=== PATIENT | female | born 1950 | race Hispanic/Latino ===

== ENCOUNTER 2019-05-27 11:30 | Inpatient (IN) | payer MEDICARE, MEDICAID ==
[~2019-05-27] VITALS: Ht 165.1 cm; Wt 84.8 kg
[~2019-05-27 11:30] MED LIST: ACTOS45 MG OR; ADVAIR DISK1 INH; ALBUTEROL S2.5 MG/.5 IN; ALBUTEROL2.5 MG/3 M IN; AVELOX400 MG OR; CELEBREX200 MG OR; CRESTOR5 MG OR; DETROL LA4 MG PO; DIABETA5 MG OR; DOXYCYCL HYC100 MG PO; GABAPENTIN300 MG PO; GLUCOPHAGE500 MG PO; GLYB/METFO5 MG/500 M OR; HYDROCHLORO25 MG/TAB PO; HYDROCHLOROT12.5 MG OR; LANTUS100 MG/ML SC; LANTUS100 UNIT/M SC; LISINOPRIL2.5 MG PO; LORTAB 5/3255 MG PO; LORTAB5 PO; MECLIZINE HCL25 MG PO; MECLIZINE25 MG PO; NASONEX50 MCG/AC NAB; NASONEX50 MCG/ACT; NEXIUM20 M1 OR; NEXIUM40 M1 PO; PERCOCET 5/325M1 TAB OR; PREDNISONE10 MG PO; PROVENTIL0.083 % IN; ROBITUSSIN AC10 ML PO; SYMBICORT1 AE1 IN; TRAMADOL HCL50 MG PO; TUSSIONEX1 ML OR; VITAMIN B-12250 MCG OR; ZOCOR10 MG PO; ZPAK PO; ZYRTEC10 M5 PO; [UNRECOGNIZED DRUG - OTHER] OR
[2019-07-03] MEDS ORDERED: VITAMIN D32000 UNIT PO (14:26)
[2019-07-03] MEDS ORDERED: DITROPAN5 MG/TA1 PO (14:26)
[2019-07-03] MEDS ORDERED: FLONASE AL50 MCG/ACT (14:27)
[2019-07-03] MEDS ORDERED: NITROSTAT0.4 MG SL (14:28)
[2019-07-03] MEDS ORDERED: TYLENOL500 MG PO (14:30)
[2019-07-03] MEDS ORDERED: VICTOZA18 MG/3 ML SC (14:38)
[2019-07-08] VITALS (8 sets, daily range): BP systolic 121–140; BP diastolic 53–72
[2019-07-08] MEDS ORDERED: CIPROFLOXACN500 MG PO (12:49)
[2019-07-08] MEDS ORDERED: CORTISPORIN OTI10 ML AS (12:55)
--- NOTE | 2019-07-08 16:00 | NUR ---
PT TO [facility] 268 FROM OR. PT VERY DROWSY, SNORING, GRIMACING WITH MOVEMENT. ON 2L NC. RIGHT KNEE ELEVATED ON PILLOW, ICE ON KNEE. LARGE FAMILY ASKED TO GO TO WAITING ROOM, LEAVING @BEDSIDE. FEMALE VISITOR STATES "LET ME LEAVE OUT OF HERE BEFORE I CUSS THIS LADY OUT". FAMILY WAS NOTIFIED PRIOR TO PT COMING TO [facility] THAT THEY WOULD HAVE TO STEP OUT FOR ASSESSMENT, ASKED TO SEE PT 1ST. VISITORS VERY LOUD, DOOR HAD TO BE SHUT.
--- NOTE | 2019-07-08 16:30 | NUR ---
PT PRESENTS TO [facility] TODAY FOR RIGHT KNEE SURGERY BY DR GALLAGHER. PER REGULATOR MECHANIC, ARRIVED WITH COTTON IN LEFT EAR (EAR INFECTION) & UTI; NOT TAKING ABX CORRECTLY AT HOME. PER OR STAFF, THEY CONFIRMED ALLERGIES AND REMOVED TYLENOL FROM LIST. PT WAS GIVEN 400MG CIPRO AT 1310, TYLENOL 1000MG AT 1458, DILAUDID 2MG GIVEN AT 1505. PT REMAINED IN PACU TO RECOVER FROM HYPOXIA D/T MEDICATIONS. RIGHT KNEE BANDAGED WITH DERMABOND, 4x4, ADELINA WRAP. ICE ON KNEE. PILLOW UNDER KNEE. #20 LAC POSITIONAL WITH NS @999ML/HR. #20 LFA SL. PT WAS GIVEN FEMORAL BLOCK PRIOR TO SURGERY. PT LIVES WITH AT HOME. NO HEARING AIDS. HAS DENTURES. DENIES SMOKING, REC DRUGS, & ALCOHOL. WEARS GLASSES. IS INSULIN DEPENDANT- DAUGHTER STATES HER BGL DROPS AT NIGHT. HAS ALREADY HAD FLU & PNA VACCINES. DENIES FALLS. USES A CANE TO WALK SOMETIMES. NO RESTORATION. MONTSERRATIAN IS PRIMARY LANGUAGE PER , ALSO SPEAKS BAHAMIAN. PT DRIVES SELF. PT DROWSY BUT AWAKENS TO SPEECH. WINCES WITH MOVEMENT. STRONG PULSES x4. NO EDEMA. ABD SOFT/NONTENDER, HYPOACTIVE BS. BREATHING EVEN/REGULAR/SHALLOW. LUNGS CTA. RAINEY. EYES SLUGGISH @2. SKIN COOL/DRY/NORMAL.
--- NOTE | 2019-07-08 16:34 | NUR ---
FAMILY NOT IN WAITING ROOM.
--- NOTE | 2019-07-08 17:24 | NUR ---
PT PLACED ON BAIRHUGGER D/T HYPOTHERMIA. PT/FAMILY EDUCATED ON INDICATION.
--- NOTE | 2019-07-08 17:27 | NUR ---
GAVE REPORT TO ALEXYS VASQUEZ FOR CONTINUED CARE.
--- NOTE | 2019-07-08 17:35 | NUR ---
PT MEDICATED FOR C/O NAUSEA; FAMILY IN ROOM; IVF INFUSING WITHOUT DIFFICULTY; CALL TELLEZ WITHIN REACH; WILL CONTINUE TO MONITOR.
--- NOTE | 2019-07-08 18:17 | NUR ---
PT STATES SHE HAS TO GO TO THE BATHROOM BUT DOESNT THINK SHE IS READY TO STAND UP. PT OFFERED BEDPAN OR PUREWICK. BAIRHUGGER LOWERED TO MEDIUM BC PT IS COMPLIANING ABOUT BEING TO HOT. PUREWICK PLACED TO SUCTION.
--- NOTE | 2019-07-08 19:45 | NUR ---
PATIENT RESTING IN BED AT THIS TIME WITH O2 VIA NASAL CANNULA IN PLACE AT 2LPM. PATIENT IS DROEWSY BUT AROUSABLE-C/O POST-OP PAIN TO RIGHT KNEE 10/10 ON PAIN SCALE. PATIENT IS TAKING ONLY SIPS OF H20 AT THIS TIME. PATIENT MEDICATED WITH DILAUDID 1MG IVP FOR PAIN. IV SITE TO LEFT AC INTACT WITH IVF NS PATENT AND INFUSING AT 100CC/HR. SITE IS HEALTHY AT THIS TIME.. SALINE LOCK TO LEFT WRIST INTACT AND APPEARS HEALTHY AT THIS ITME. BEAR HUGGER REMOVED-TEMP 97.0 AT THIS TIME. SCD TO LEFT LEG INTACT. ICE PACK TO RIGHT KNEE ON AND OFF ORDERED. DRESSING TO RIGHT INTACT AND SECURED WITH ADELINA WRAP. PUREWICK IN PLACE AND DRAINING YELLOW URINE. SAFETY PRECAUTIONS REVIEWED WITH PATIENT AND S/O. CALL LIGHT IN REACH. WILL CONT TO MONITOR.
--- NOTE | 2019-07-08 22:50 | NUR ---
PATIENT RESTING IN BED AT THIS TIME-MORE ALERT AND ORIENTED THAN EARLIER. PATIENT WITH 10/10 RIGHT KNEE PAIN. TOO EARLY FOR DILAUDID AND MEDICATED WITH PERCOCET ORDERED. REMAINS AT BEDSIDE AND WILL BE STAYING THE NIGHT WITH PATIENT. COT PROVIDED FOR . IV SITE TO LEFT AC INTACT WITH IVF NS PATENT AND INFUSING AT 100CC/HR. PATIENT IS STARTING TO TAKING MORE PO FLUIDS AND CRACKERS. O2 VIA NASAL CANNULA IN PLACE AT 2LPM. ICE PACK PROVIDED TO RIGHT KNEE ORDERED. ON AND OFF. DRESSING TO RIGHT KNEE INTACT AND SECURED WITH ADELINA WRAP. PATIENT INSTRUCTED ON USE OF IS Q1H W/A. PATIENTIS ABLE TO DEMONSTRATE PROPER USE OF THE DEVICE. SALINE LOCK TO LEFT WRIST INTACT-APPEARS HEALTHY AT THI SITME, PUREWICK IS DRAINING CLEAR YELLOW URINE. SAFETY PRECAUTIONS REINFORCED. CALL LIGHT IN REACH. WILL CONT TO MONITOR.
--- NOTE | 2019-07-08 23:54 | NUR ---
PATIENT RESTING IN BED-BS-153 AT THIS TIME BUT PATIENT IS STILL NOT EATING OR DRINKING MUCH. ONLY SIPS OF H20. SPOKE WITH DR. CERVANTES AND WILL HOLD KIERSTEN WILLIS. WILL CONT TO MONITOR.
--- NOTE | 2019-07-09 01:00 | NUR ---
PATIENT RESTING IN BED-C/O SEVERE POST-OP AND RIGHT FOOT PAIN. MEDICATED WITH DILAUDID 1MGIVP FOR PAIN. IVF PATENT AND INFUSING AT 100CC/HR VIALEFT AC SITE. PUREWICK DRAINING CLEAR YELLOW URINE. DRESSING TO RIGHTKNEE INTACT-SECURED WITH ADELINA WRAP. USING ICE PACKS ON ANDOFF ORDERED. ENCOURAGED USE OF IS Q1H W/A.SCD'S IN PLACE. CALL LIGHT IN REACH. WILL CONT TO MONITOR.
--- NOTE | 2019-07-09 03:39 | NUR ---
PATIENT RESTING IN BED-C/O RIGHT KNEE PAIN-10/10 ON PAIN SCALE. MEDICATED WITH PERCOCET TABS 2 FOR PPOST-OP PAIN. PURE WICK CONT TO DRAINING CLEAR YELLOW URINE. REMAINS AT BEDSIDE. SAFETY PRECAUTIONS REINFORCED. CALL LIGHT IN REACH. WILL CONT TO MONITOR.
[2019-07-09 04:40] VITALS: BP 121/70
[2019-07-09 05:04] LABS: HEMATOCRIT 32.6 % (37.0-47.0); HEMOGLOBIN 10.7 g/dl (12.0-16.0)
--- NOTE | 2019-07-09 07:45 | NUR ---
REPORT FROM STEFANIE REARDON. PT RESTING IN BED. PT C/O RIGHT KNEE PAIN 05/09. ICE PACKS PROVIDED AND REPOSITIONED ON PILLOWS WILL MEDICATED ONCE MAR REVIEWED. PT DENIES ANY OTHER CURRENT WANTS OR NEEDS. NO APPARENT DISTRESS NOTED. DISCUSSED POC. PT VERBALIZED UNDERSTANDING. CALL LIGHT WITHIN REACH. WILL CONTINUE TO MONITOR.
[2019-07-09 07:56] VITALS: BP 111/67
--- NOTE | 2019-07-09 10:24 | NUR ---
PT PLACED ON BED GAMBLE AT THIS TIME. PT STATES SHE WILL NEED A COUPLE OF MINUTES. CALL LIGHT WITHIN REACH. WILL CONTINUE TO MONITOR.
--- NOTE | 2019-07-09 10:33 | NUR ---
PT ASSISTED OF BEDPAN. PERICARE PROVIDED AND PT REPOSITIONED IN BED. CALL LIGHT WITHIN REACH. WILL CONTINUE TO MONITOR.
[2019-07-09 11:06] VITALS: BP 111/68
--- NOTE | 2019-07-09 13:10 | NUR ---
PT PLACED ON BEDPAN UPON REQUEST. CALL LIGHT WITHIN REACH. WILL CONTINUE TO MONITOR.
--- NOTE | 2019-07-09 15:07 | NUR ---
Pt. found resting in bed this PM, explained treatment plan of which pt. responded she would participate in exercises while in bed. Pt. educated on and performed active RLE ankle pumps, assisted R knee extensions, gluteal and quad sets and AAROM R knee flexion with gait belt x 5-8 repetitions each. Pt. also instructed on proper positioning with pillows for passive knee extension. Post treatment pt. left resting comfortably in bed without questions/concerns and relative in room visiting. AMPAC score unchanged.
[2019-07-09 16:04] VITALS: BP 105/67
--- NOTE | 2019-07-09 16:36 | NUR ---
PT VOMITED SMALL AMOUNT. PT INCONTINENT OF URINE AT THIS TIME. PERICARE PROVIDED AND PAD CHANGED. MEDICATED FOR NAUSEA. RIGHT LEG REPOSITIONED ON PILLOWS. CALL LIGHT WITHIN REACH. WILL CONTINUE TO MONITOR.
[2019-07-09 18:49] VITALS: BP 102/55
--- NOTE | 2019-07-09 19:41 | NUR ---
PATIENT RESTING IN BED ON FIRST ROUNDS WITH AT BEDSIDE. PATIENT IS AWAKE ALERT AND ORIENTEDX3. AT BEDSIDE. PATIENT STATES THAT SHE H AD LITTLE OR NO RELIEF FROM PERCOCET RECIEVED ON DAYSHIFT. O2 VIA NASAL CANNULA APPLIED O2 SAT WAS IN LOW 90'S ON ROOM AIR. PATIENT WITH IV SITES TO LEFT AC AND LEFT WRIST-SITE APPEAR HEALTHY AT THIS TIME. DRESSING TO RIGHT KNEE INTACT AND SECURED WITH ADELINA WRAP. REFUSING ICE PACKS AT THIS TIME. ENCOURAGED USE OF IS Q1H W/A-NEEDS REINFORCEMENTS. SCD TO LLE IN PLACE. ENCOURAGED TO TO GET OOB TO BSC TO VOID-VOIDING YELLOW URINE IN BSC. SAFETY PRECAUTIONS REINFORCED. CALL LIGHT IN REACH. WILL CONT TO MONITOR.
--- NOTE | 2019-07-09 20:54 | NUR ---
PATIENT RESTING IN BED-HS MEDS GIVEN ORDERED EXCEPT FOR NOVALOG AND LEVEMIR-PATIENT REFUSED AND IS NOT EATING AT THIS TIME. PATIEMT CONT TO COMPLAIN OF CONSTANT RIGHT KNEE AND BACK PAIN. TOO EARLY FOR PAIN MEDS AT THIS ITME. SAFETY PRECAUTIONS REINFORCED. CALL LIGHT IN REACH. WILL CONT TO MONITOR.
--- NOTE | 2019-07-09 22:00 | NUR ---
PATIENT RESTING IN BED WITH AT BEDSIDE. PATIENT C/O RIGHT KNEE POST-OP PAIN-9/10 ON PAIN SCALE. MEDICATED WITH PERCOCET TABS 2 FOR PAIN. CALL LIGHT IN REACH. WILL CONT TO MONITOR.
[2019-07-10] VITALS (7 sets, daily range): BP systolic 92–123; BP diastolic 48–66
--- NOTE | 2019-07-10 02:00 | NUR ---
PATIENT RESTING IN BED-MEDICATED FOR PAIN WITH PERCOCET ORDERED. AT BEDSIDE AND APPEARS SLEEPING. CALL LIGHT IN REACH. WILL CONT TO MONITOR
[2019-07-10 05:10] LABS: HEMATOCRIT 33.6 % (37.0-47.0); HEMOGLOBIN 10.9 g/dl (12.0-16.0); IMMATURE GRANULOCYTES 0.2 % (0.0-5.0); MEAN CELL VOLUME 88.7 fL CALC (80.0-100.0); MEAN CORPUSCULAR HGB 28.8 pG CALC (26.0-32.0); MEAN CORPUSCULAR HGB CONC 32.4 g/L CALC (32.0-36.0); NEUT# 6.22 thou/uL (2.00-7.15); RED BLOOD COUNT 3.79 mill/uL (4.20-5.60)
[2019-07-10 05:27] LABS: ANION GAP 14 (6-22 (CALC)); BUN 12 mg/dL (8-23); BUN/CREATININE RATIO 17 (12-20 (CALC)); CARBON DIOXIDE 28 mmol/l (22-30); CHLORIDE 97 mmol/l (95-108); CREATININE 0.7 mg/dL (0.5-1.0); GFR > 60 ML/MIN (>=60 (CALC)); GFR FOR AFR.AMER. > 60 ML/MIN (>=60 (CALC)); MAGNESIUM 1.8 mg/dL (1.6-2.3); POTASSIUM 3.8 mmol/l (3.5-5.1)
[2019-07-10 05:34] LABS: SODIUM 135 mmol/l (137-146)
--- NOTE | 2019-07-10 06:02 | NUR ---
PATIENT RESTING IN BED AT THIS TIME-APPEARS SLEEPING. AT BEDSIDE. CALL LIGHT IN REACH. WILL CONT TO MONITOR
--- NOTE | 2019-07-10 08:47 | NUR ---
ASSESSMENT DONE. PT IS A&O X3. PT STATED PAIN IN RIGHT KNEE 05/09. MEDICATED PT WITH PERCOCET. PT TALKING IN HER CELL PHONE. RIGHT KNEE DRESSING CDI. I.S ENCOURAGE PT VERBALIZED UNDERSTANDING. PT DENIES ANY OTHER NEEDS AT THIS TIME. CALL LIGHT IN REACH.
--- NOTE | 2019-07-10 10:27 | NUR ---
PT WAS SEEN THIS AM FOR G.T. SHE WAS INDEPENDENT ON SUPINE <>SIT, SIT<>STAND WITH MINIMAL VERBAL CUES ON HAND PLACEMENT. SHE AMBULATED IN THE HALLWAY WITH RW AND CGA X ~50 FT X 2. SHE WAS INSTRUCTED ON PROPER GAIT PATTERN AND CORRECT USE OF RW. SHE HAD TO RETURN TO HER ROOM IMMEDIATELY DUE TO REPORTS OF DIZZINESS AND SPINNING SENSATION. REPOSITIONED SELF TO LAY ON BED WITH HOB SLIGHTLY ELEVATED. THEREX WAS REVIEWED INCLUDING QUADS AND GLUTES ISOMETRICS, HEEL SLIDES AND ISOMETRIC KNEE FLEXION. REMINDED ON 90 DEG LIMIT OF KNEE FLEXION. FALL PRECAUTION WAS REMINDED, PT UNDERSTOOD. [facility] THIS AM: 15 POINTS, PT WILL BENEFIT FROM HOME HEALTH PHYSICAL THERAPY UPON DC. SHE HAS GOOD SAFETY AWARENESS AND IS VERY MUCH CAPABLE OF PERFORMING HOME EXERCISE PROGRAM.
--- NOTE | 2019-07-10 12:00 | NUR ---
PT IS VISITING WITH FAMILY IN ROOM. PT DENIES ANY NEEDS AT THIS TIME. CALL LIGHT IN REACH.
--- NOTE | 2019-07-10 14:07 | NUR ---
MEDICATED PT WITH PERCOCET FOR PAIN IN RIGHT KNEE 05/09. REMOVED RIGHT KNEE DRESSING PER ORDER. PT IN ROOM. CALL LIGHT IN REACH.
--- NOTE | 2019-07-10 15:48 | NUR ---
PM TX- PT WAS SEEN FOR GT. SHE REPEATEDLY COMPLAINED OF PAIN ON R KNEE. SHE SAT UP FROM SUPINE WITH MODIFIED INDEP HOLDING ONTO BED RAIL. SHE PERFORMED SEATED HEEL SLIDES AND QUAD SETS PRIOR TO AMBULATION. SHE AMBULATED IN THE HALLWAY WITH RW AND CGA X 50 FT X 2 AT A VERY SLOW PACE. SHE WAS INSTRUCTED OF PROPER GAIT AND PREVENTING PIVOT TURNING. SHE REQUESTED TO RETURN TO HER ROOM TO LAY BACK DOWN IN THE BED. [facility] SCORE TODAY: 15
--- NOTE | 2019-07-10 16:05 | NUR ---
PT IS RESTING IN BED. PT STATED THAT THE PAIN MEDICATED HAD HELPED SOME. PT DENIES ANY NEEDS AT THIS TIME. CALL LIGHT IN REACH.
--- NOTE | 2019-07-10 19:25 | NUR ---
REPORT RECEIVED FROM NICOLE REARDON. PT RESTING IN BED. NO S/S OF DISTRESS AT THIS TIME. SAFETY PRECAUTIONS IN PLACE. WILL CONTINUE TO MONITOR.
--- NOTE | 2019-07-10 21:55 | NUR ---
PT RESTING IN BED. ALERT AND ORIENTED. FAMILY AT BEDSIDE. RESPIRATIONS EVEN AND UNLABORED ON RA, O2 @ BEDSIDE. LUNGS SOUND CLEAR. RIGHT KNEE FEELS WARM TO TOUCH, DERMABOND TO R KNEE CDI. PT REPORTS PAIN OF AN 8 OUT 10 IN THE RIGHT KNEE, PT TO BE MEDICATED PER EMAR ORDERS. CALL TELLEZ WITHIN REACH. WILL CONTINUE TO MONITOR.
--- NOTE | 2019-07-11 00:35 | NUR ---
PT RESTING IN BED. NO S/S OF DISTRESS AT THIS TIME. SAFETY PRECAUTIONS IN PLACE. WILL CONTINUE TO MONITOR.
[2019-07-11 03:45] VITALS: BP 122/70
--- NOTE | 2019-07-11 04:02 | NUR ---
PT RESTING IN BED RESPIRATIONS EVEN AND UN LABORED ON O2 @ 2L VIA NC. NO S/S OF DISTRESS AT THIS TIME. SAFETY PRECAUTIONS IN PLACE. WILL CONTINUE OT MONITOR.
[2019-07-11 05:23] LABS: HEMATOCRIT 32.3 % (37.0-47.0); HEMOGLOBIN 10.3 g/dl (12.0-16.0)
--- NOTE | 2019-07-11 08:15 | NUR ---
ASSESSMENT DONE. PT IS A&O X3 BUT DROWSY. PT STATED THAT THE PAIN MEDICATION HELPED. RIGHT KNEE IS WARM TO THE TOUCH. IN ROOM. I.S ENCOURAGE PT VERBALIZED UNDERSTANDING. CALL LIGHT IN REACH.
[2019-07-11 08:20] VITALS: BP 116/49
[2019-07-11 10:50] VITALS: BP 99/62
--- NOTE | 2019-07-11 11:16 | NUR ---
PT IS SITTING IN RECLINER. PT IS DROWSY. PT STATED THAT SHE HAS PAIN IN RIGHT KNEE IS 10/10. TOLD PT THAT PAIN MEDICATION IS NOT DUE YET. PT VERBALIZED UNDERSTANDING. PT DENIES ANY OTHER NEEDS AT THIS TIME. CALL LIGHT IN REACH.
--- NOTE | 2019-07-11 12:02 | NUR ---
PM TX- PT WAS SEEN FOR GT. SHE CONSTANTLY COMPLAINED OF PAIN ON KNEE AND WAS AGITATED TODAY ASKING FOR PAIN MEDS THAT WAS NOT DUE YET. PT COOPERATED WITH THERAPY. SUPINE>SIT, SIT>STAND WITH MODIFIED INDEP HOLDING ONTO RAIL AND WALKER. INSTRUCTED TO PERFORM STANDING WEIGHT SHIFTING PRIOR TO START OF AMBULATION. SHE THEN AMBULATED IN THE ROOM WITH RW AND CGA. PT WAS DROWSY AND UNSTABLE DURING AMB. PT WAS EDUCATED ON IMPORTANCE OF MOVING AND WALKING BEST SHE COULD FOR GOOD REHAB OUTCOME. SHE WAS GIVEN A HANDOUT OF EXERCISES, DISCUSSED EACH EXERCISE, PT EXPRESSED UNDERSTANDING. [facility] TODAY: 16 POINTS
[2019-07-11 14:45] VITALS: BP 91/51
--- NOTE | 2019-07-11 15:13 | NUR ---
PT IS VISITING IN ROOM WITH FAMILY . MEDICATED PT WITH TYLENOL FOR TEMP 100.0 AND FOR PAIN IN RIGHT KNEE. PT DENIES ANY OTHER NEEDS AT THIS TIME. CALL LIGHT IN REACH.
--- NOTE | 2019-07-11 16:40 | NUR ---
PM TX- PT AMBULATED IN THE HALLWAY WITH RW AND SBA ~80 FT X 2. MODIFIED INDEP ON BED MOB AND TRANSFERS. SHE MAY BENEFIT FROM SHORT-TERM IN-PT REHAB PRIOR TO DC HOME WITH HOME HEALTH [facility] SCORE THIS PM: 17 POINTS
[2019-07-11 19:17] VITALS: BP 126/69
--- NOTE | 2019-07-11 19:45 | NUR ---
PT SITTING ON BSC WITH AT BEDSIDE. A&O X3. NO COMPLAINTS AT THIS TIME. DISCUSSED POC. ASSESSMENT COMPLETED AT THIS TIME. CALL LIGHT IN REACH. CONTINUE TO MONITOR.
[2019-07-11 23:23] VITALS: BP 113/62
--- NOTE | 2019-07-12 00:03 | NUR ---
PT SLEEPING IN BED. AT BEDSIDE. NO SIGNS OF DISTRESS. CONTINUE TO MONITOR.
--- NOTE | 2019-07-12 04:03 | NUR ---
PT SLEEPING IN BED AT BEDSIDE. NO DISTRESS NOTED. CONTINUE TO MONITOR.
[2019-07-12 04:15] VITALS: BP 102/60
[2019-07-12 06:25] LABS: ANION GAP 12 (6-22 (CALC)); BUN 20 mg/dL (8-23); BUN/CREATININE RATIO 37 (12-20 (CALC)); CARBON DIOXIDE 29 mmol/l (22-30); CHLORIDE 99 mmol/l (95-108); CREATININE 0.6 mg/dL (0.5-1.0); GFR > 60 ML/MIN (>=60 (CALC)); GFR FOR AFR.AMER. > 60 ML/MIN (>=60 (CALC)); SODIUM 135 mmol/l (137-146)
[2019-07-12 06:27] LABS: HEMATOCRIT 31.5 % (37.0-47.0); HEMOGLOBIN 10.1 g/dl (12.0-16.0); IMMATURE GRANULOCYTES 0.5 % (0.0-5.0); MEAN CORPUSCULAR HGB 28.9 pG CALC (26.0-32.0); MEAN CORPUSCULAR HGB CONC 32.1 g/L CALC (32.0-36.0); NEUT# 6.26 thou/uL (2.00-7.15); RED BLOOD COUNT 3.5 mill/uL (4.20-5.60); RED CELL DISTRI WIDTH 14.6 % (11.5-15.5)
[2019-07-12 06:32] LABS: MAGNESIUM 2.4 mg/dL (1.6-2.3)
[2019-07-12 07:40] VITALS: BP 116/63
[2019-07-12 08:18] VITALS: BP 116/63
--- NOTE | 2019-07-12 08:18 | NUR ---
PT IS SITTING IN THE SIDE OF THE BED. ASSESSMENT DONE. PT IS A&O X3. PT STATED PAIN IN RIGHT KNEE. MEDICATED PT WITH TYLENOL AND APPLIED ICE PACK TO RIGHT KNEE. RIGHT KNEE INCISION IS CDI. PT DENIES ANY OTHER NEEDS AT THIS TIME. CALL LIGHT IN REACH.
--- NOTE | 2019-07-12 10:05 | NUR ---
AM TX- PT WAS SEEN FOR GT. SHE C/O FEELING TIRED. HER BLOOD GLUCOSE AT 7AM WAS 86. SHE DID SUPINE<>SIT WITH MIN A WHILE THERAPIST HELPS LIFT R LE TO/FROM BED. SHE THEN AMB IN THE HALLWAY ~60 FT X 2 W/ RW AND SBA. PT DEMONSTRATED GOOD BALANCE AND STABLE GAIT. SHE DID REPORT PAIN ON R KNEE HOWEVER, SHE APPEARED MORE TOLERANT TODAY COMPARED TO PREVIOUS DAYS POST-OP. HER AMPAC SCORE REMAINS 17 POINTS. SHE WILL BENEFIT FROM SHORT-TERM IN-PT REHAB PRIOR TO DC HOME WITH HOME HEALTH P.T.
--- NOTE | 2019-07-12 11:01 | NUR ---
PT STATED PAIN IN RIGHT KNEE . MEDICATED PT WITH PERCOCET. NOTIFIED PT THAT I TOLD TATUM BAZZI RE: PT PT HAVING BURNING WHEN SHE PEES. PT DENIES ANY OTHER NEEDS AT THIS TIME. IN ROOM. CALL LIGHT IN REACH.
--- NOTE | 2019-07-12 15:02 | NUR ---
Discharge instructions given. Patient verbalizes understanding of same. Discharged in stable condition via Wheelchair to Home with spouse. All belongings sent with pt.
== END 2019-07-12 15:02 | disposition home health service (06) | DRG 470 ==
LOC: MS2 07-08 09:06 → OR 07-08 10:00 → MS2 07-08 14:00 → OR 07-08 14:30 → MS2 07-12 15:02
PROVIDERS: Nurse Practitioner Family; ADMIT Orthopaedic Surgery; ATTEND Internal Medicine
PROC: 0SRC0J9 Replacement of Right Knee Joint with Synthetic Substitute, Cemented, Open Approach (ICD-10-PCS; principal; 2019-07-08)
PROC: 3E0T3BZ Introduction of Anesthetic Agent into Peripheral Nerves and Plexi, Percutaneous Approach (ICD-10-PCS; 2019-07-08)
DX: M17.11 Unilateral primary osteoarthritis, right knee (principal); N39.0 Urinary tract infection, site not specified; E11.9 Type 2 diabetes mellitus without complications; I10 Essential (primary) hypertension; E78.5 Hyperlipidemia, unspecified; J43.9 Emphysema, unspecified; K21.9 Gastro-esophageal reflux disease without esophagitis; N32.81 Overactive bladder; H66.92 Otitis media, unspecified, left ear; K59.00 Constipation, unspecified; Z79.4 Long term (current) use of insulin; Z87.891 Personal history of nicotine dependence; G89.18 Other acute postprocedural pain
CPT/HCPCS: J0131; J2710

== ENCOUNTER 2020-02-10 16:15 | Inpatient (IN) | payer MEDICARE, MEDICAID ==
[~2020-02-10] VITALS: Ht 165.1 cm; Wt 80.0 kg
[~2020-02-10 16:15] MED LIST changes: +CIPROFLOXACN500 MG PO; +CORTISPORIN OTI10 ML AS; +DITROPAN5 MG/TA1 PO; +FLONASE AL50 MCG/ACT; +NITROSTAT0.4 MG SL; +TYLENOL500 MG PO; +VICTOZA18 MG/3 ML SC; +VITAMIN D32000 UNIT PO
--- NOTE | 2020-02-10 16:35 | NUR ---
Pt to room # 15 with slow steady gait for bedside triage
--- NOTE | 2020-02-10 17:00 | NUR ---
PT PRESENTS WITH PAIN 5/10 IN BODY ACHES, INTERM PROD COUGH AND HEADACHES, DECREASE IN APPETITE, NAUSEA WITHOUT VOMIT AND FEVER OF 99.7F. LUNGS DIMINISHED IN LOWER LOBES BI. DENIES ANY OTHER S/S. SYMPTOMS STARTED TWO DAYS AGO CALL LIGHT WITHIN REACH.
[2020-02-10 17:47] LABS: HEMATOCRIT 36.7 % (37.0-47.0); HEMOGLOBIN 11.8 g/dl (12.0-16.0); IMMATURE GRANULOCYTES 0.3 % (0.0-5.0); MEAN CELL VOLUME 88.4 fL CALC (80.0-100.0); MEAN CORPUSCULAR HGB 28.4 pG CALC (26.0-32.0); MEAN CORPUSCULAR HGB CONC 32.2 g/dL CAL (32.0-36.0); NEUT# 1.97 thou/uL (2.00-7.15); RED BLOOD COUNT 4.15 mill/uL (4.20-5.60); RED CELL DISTRI WIDTH 13.9 % (11.5-15.5)
--- NOTE | 2020-02-10 18:00 | NUR ---
PT STATES THAT IV IS BOTHERING HER, FLUSHED IV, IT IS PATENT AND NO SWELLING NOTED AND PT DENIES ANY INCREASE IN PAIN. IT WAS EXPLAINED TO PT THAT SINCE IT IS IN THE AC, IF THE ARM IS BENDING, IT WILL MAKE IT UNCOMFORTABLE. PT DEMONSTRATED UNDERSTANDING. CALL LIGHT WITHIN REACH
[2020-02-10 18:10] LABS: ALBUMIN 4.6 g/dL (3.2-5.0); ALKALINE PHOSPHATASE 83 u/l (38-126); ANION GAP 13 (6-22 (CALC)); BILIRUBIN, TOTAL 0.4 mg/dL (0.0-1.4); BUN 17 mg/dL (8-23); BUN/CREATININE RATIO 22 (12-20 (CALC)); C-REACTIVE PROTEIN 1.6 mg/dL (0-0.9); CARBON DIOXIDE 28 mmol/l (22-30); CHLORIDE 98 mmol/l (95-108); CREATININE 0.8 mg/dL (0.5-1.0); D-DIMER 1.62 mg/L (0.19-0.60); GFR > 60 ML/MIN (>=60 (CALC)); GFR FOR AFR.AMER. > 60 ML/MIN (>=60 (CALC)); POTASSIUM 3.9 mmol/l (3.5-5.1); SGOT/AST 29 u/l (9-36); SODIUM 134 mmol/l (137-146); TOTAL PROTEIN 7.2 g/dL (6.3-8.2)
[2020-02-10 18:13] LABS: PROTHROMBIN TIME 10.1 SECONDS (9.0-12.5)
--- NOTE | 2020-02-10 19:00 | NUR ---
PT NOTIFIED OF PENDING ADMISSION. ANTIBIOTICS AND FLUIDS FLOWING INTO PATENT IV. IV SITE APPEARS HEALTHY WITH NO READNESS, SWELLING NOR BLANCHING. CALL LIGHT WITHIN REACH. PT DENIES ANY NEEDS AT THIS TIME
[2020-02-10] MEDS ORDERED: HYDROCHLOROTH12.5 M1 PO (19:15)
--- NOTE | 2020-02-10 20:32 | NUR ---
GAVE REPORT TO VERONICA
--- NOTE | 2020-02-10 20:40 | NUR ---
PT TRANSPORTED TO ICU STABLE AND IN NO DISTRESS BY STRETCHER. PT CARE ASSUEMD TO VERONICA Admission Note Report Given to: Transported by: Wheelchair X Stretcher Transported with: X Nurse Transporter X Patent IV X O2 X Multi Sensor Operator Location: X ICU MS2
--- NOTE | 2020-02-10 21:00 | NUR ---
TO ROOM 2 VIA W/C FROM ER. STATES IS COVID POSITIVE (DX AT [facility]) THIS WEEKEND. SHE REPORTS THAY ARE BOTH HAVING THE SAME S/S- COUGH, CONGESTION, FEVER, CHILLS X 2 DAYS
[2020-02-10 21:30] VITALS: BP 126/60
[2020-02-10 21:45] VITALS: BP 117/56
[2020-02-10 22:00] VITALS: BP 126/60
[2020-02-10 22:15] VITALS: BP 113/56
[2020-02-10 22:45] VITALS: BP 110/53
--- NOTE | 2020-02-10 22:52 | NUR ---
TO BSC WITH STANDBY ASSIST-COOPERATIVE AND TALKATIVE. FLUIDS INFUSING RX. NO COUGH NOTED AT THIS TIME
[2020-02-10 23:00] VITALS: BP 103/53
[2020-02-11] VITALS (12 sets, daily range): BP systolic 95–135; BP diastolic 51–69
--- NOTE | 2020-02-11 00:18 | NUR ---
UP TO BSC-TOLERATED WELL. REQUESTED TYLENOL FOR H/A. WILL GIVE PER REQUEST
--- NOTE | 2020-02-11 02:00 | NUR ---
BEDRESTING LIGHTS OUT TV OFF. NO COUGH NOTED. TYLENOL EFFECTIVE FOR H/A. REMAINS ON AIRBORNE PRECAUTIONS WITH AIR SCRUBBER IN ROOM
--- NOTE | 2020-02-11 03:52 | NUR ---
BEDRESTING. RESP EVEN AND NONLABORED. CONTINUES WITH OXYGEN AT 2L/MIN PER N/C. SAT 99-100%. NO DISTRESS NOTED. TALKATIVE AT TIMES. AFEBRILE SINCE ARRIVAL TO ICU
[2020-02-11 04:58] LABS: HEMATOCRIT 33.5 % (37.0-47.0); HEMOGLOBIN 10.9 g/dl (12.0-16.0); IMMATURE GRANULOCYTES 0.4 % (0.0-5.0); MEAN CELL VOLUME 88.2 fL CALC (80.0-100.0); MEAN CORPUSCULAR HGB 28.7 pG CALC (26.0-32.0); MEAN CORPUSCULAR HGB CONC 32.5 g/dL CAL (32.0-36.0); NEUT# 2.11 thou/uL (2.00-7.15); RED BLOOD COUNT 3.8 mill/uL (4.20-5.60); RED CELL DISTRI WIDTH 14.1 % (11.5-15.5)
--- NOTE | 2020-02-11 05:03 | NUR ---
BLOOD DRAWN AND TO LAB
[2020-02-11 05:32] LABS: ALBUMIN 3.8 g/dL (3.2-5.0); ALKALINE PHOSPHATASE 67 u/l (38-126); ANION GAP 11 (6-22 (CALC)); BILIRUBIN, TOTAL 0.3 mg/dL (0.0-1.4); BUN 14 mg/dL (8-23); BUN/CREATININE RATIO 22 (12-20 (CALC)); C-REACTIVE PROTEIN 1.2 mg/dL (0-0.9); CARBON DIOXIDE 25 mmol/l (22-30); CHLORIDE 106 mmol/l (95-108); CREATININE 0.6 mg/dL (0.5-1.0); GFR > 60 ML/MIN (>=60 (CALC)); GFR FOR AFR.AMER. > 60 ML/MIN (>=60 (CALC)); SGOT/AST 25 u/l (9-36); SODIUM 137 mmol/l (137-146)
[2020-02-11 05:35] LABS: URINE BILIRUBIN - DIPSTICK NEGATIVE (NEGATIVE); URINE BLOOD DIPSTICK NEGATIVE (NEGATIVE); URINE COLOR YELLOW; URINE GLUCOSE - DIPSTICK NEGATIVE (NEGATIVE); URINE KETONE NEGATIVE (NEGATIVE); URINE LEUK ESTERASE NEGATIVE (NEGATIVE); URINE NITRITE - DIPSTICK NEGATIVE (Negative); URINE PROTEIN - DIPSTICK NEGATIVE (NEG-TRACE); URINE SPECIFIC GRAVITY >=1.030; URINE UROBILINOGEN - DIPSTICK 0.2 E.U./dL (0.2)
--- NOTE | 2020-02-11 05:40 | NUR ---
URINE OBTAINED AND TO LAB
--- NOTE | 2020-02-11 06:30 | NUR ---
BEDRESTING. NO COUGH OR DISTRESS NOTED
--- NOTE | 2020-02-11 07:20 | NUR ---
pt awake in bed; no apparent distress noted; pt offers no complaints; assessment completed at this time; pt alert and oriented; denies pain; no n/v noted; resp even and unlabored; lungs clear/diminished; skin color wnl; o2 per nc; no resp distress noted; hr reg; strong pulses; no edema noted; sr on monitor; abd soft with bs present; no bm noted per designer/writer; voiding without complication; bsc; #20 flushed and patent to rac; no redness or edema noted at site; plan of care/ am meds explained; call light within reach; will continue to monitor
--- NOTE | 2020-02-11 07:48 | NUR ---
Dr Diaz present at bedside to assess pt and discuss plan of care
--- NOTE | 2020-02-11 08:06 | NUR ---
awake in bed; no apparent distress noted; o2 per nc ; pt conversing on cell phone; sr on monitor; iv intact; call light within reach; will continue to monitor
--- NOTE | 2020-02-11 10:03 | NUR ---
pt awake in bed; po fluids provided; pt offers no complaints; iv intact and patent; o2 per nc; sr on monitor; call light within reach; will continue to monitor
--- NOTE | 2020-02-11 12:02 | NUR ---
awake in bed eating lunch; no apparent distress noted; pt offers no complaints; iv intact; sr on monitor; o2 per nc; call light within reach; will continue to monitor
--- NOTE | 2020-02-11 14:00 | NUR ---
awake in bed; o2 per nc; no apparent distress noted; sr on monitor; will continue to monitor
--- NOTE | 2020-02-11 16:08 | NUR ---
resting in bed with eyes closed; no apparent distress noted; easily aroused; offers no complaints; iv intact; sb on monitor; o2 per nc; assisted to bsc; no sob noted; call light within reach; will continue to monitor
--- NOTE | 2020-02-11 17:33 | NUR ---
telegraphic typewriter installer in room to administer medications; pt with complaints of burning while urinating; pt also had complaints of chest pain, right "LUNG" pain; no distress noted; pt also informs this telegraphic typewriter installer that her spouse is havinf burning with urination; will continue to monitor
--- NOTE | 2020-02-11 17:40 | NUR ---
Dr Diaz informed per this account underwriter of pt complaints of burning while urinating, chest pain and right lung pain; VSS: no distress noted; no changes to rn cardiac rehab; ua from admit negative; also informed that per pt her (icu bed 5) is also having burning while urinating; will continue to monitor
--- NOTE | 2020-02-11 18:10 | NUR ---
pt awake in bed; no apparent distress noted; sr on monitor; o2 per nc; call light within reach
--- NOTE | 2020-02-11 19:15 | NUR ---
Received report. Pt alert. Cooperative. States she feels better tonight. Reports is coughing up some green sputum at times and chest is sore from coughing. IV abt completed. To bsc with standby kvng
--- NOTE | 2020-02-11 20:43 | NUR ---
C/O H/A. REQUESTED TYLENOL. TALKING ON PHONE MOST OF EVENING. NO COUGH OR DISTRESS NOTED
--- NOTE | 2020-02-11 22:06 | NUR ---
TO [facility] WITH STANDBY ASSIST-TOLERATED WELL. WATCHING TV. NO DISTRESS NOTED
--- NOTE | 2020-02-11 22:58 | NUR ---
BEDRESTING. TALKING ON PHONE. NO DISTRESS NOTED. PERIODIC COUGH.
[2020-02-12] VITALS (8 sets, daily range): BP systolic 106–120; BP diastolic 53–76
--- NOTE | 2020-02-12 00:20 | NUR ---
BEDRESTING. QUIET, NO COUGH NOTED. LIGHTS OUT. TV REMAINS ON. NO DISTRESS NOTED
--- NOTE | 2020-02-12 02:00 | NUR ---
UP TO BSC WITH STANDBY ASSIST-TOLERATED WELL. MAINTAINS O2 SATURATION. NO SOB NOTED. GAIT STEADY.
--- NOTE | 2020-02-12 04:00 | NUR ---
BEDRESTING. TV OFF AND LIGHTS OUT. NO COUGH NOTED. MOVES ABOUT AD ROLA.
--- NOTE | 2020-02-12 06:00 | NUR ---
BEDRESTING. RESP EVEN AND NONLABORED. N/C AT THIS TIME
--- NOTE | 2020-02-12 06:45 | NUR ---
RECIEVED REPORT FROM ALEXYS MCGOWAN. ASSUMED PT CARE.
--- NOTE | 2020-02-12 07:30 | NUR ---
DR. BLANK AT BEDSIDE FOR ASSESSMENT AND TO DISCUSS PLAN OF CARE. PT DOWNGRADED TO MS/OF WITHOUT TELLEMETRY.
--- NOTE | 2020-02-12 08:00 | NUR ---
PT SITTING UP IN BED, TALKING ON PERSONAL CELL PHONE. SR ON TELEMETRY, HR 70. PT DENIES CP, SOB OR DISTRESS AT THIS TIME.SA02@100%RA, LS CLEAR/DIMINISHED THROUGHOUT. PT REPORTS A SORE THROAT FROM WALKING ON COLD FLOOR. SOCKS PROVIDED, PT PERSONAL HOUSE SLIPPERS AT BEDSIDE. ABDOMEN SOFT, NON-TENDER, BSX4 ACTIVE, LBM 7-15-20. CALL LIGHT IN REACH. WILL MONITOR.
--- NOTE | 2020-02-12 09:04 | NUR ---
FAMILY BROUGHT PT BELONGING TO UNIT, GIVEN TO PT.
--- NOTE | 2020-02-12 12:30 | NUR ---
PT SITTING UP IN BED, TALKING ON PERSONAL CELL PHONE. NO DISTRESS NOTED AT THIS TIME. CALL LIGHT IN REACH. WILL MONITOR.
--- NOTE | 2020-02-12 16:00 | NUR ---
PT STATED SHE FELT FEVERISH , TEMP 98.5. PT OFFERED FLUIDS AND BLANKET. CALL LIGHT IN REACH. WILL MONITOR.
--- NOTE | 2020-02-12 19:20 | NUR ---
RECEIVED REPORT ON PT AND PT SITTING ON SIDE OF BED COMPLAINS OF NAUSEA AND NOTED BURPING SEVERAL TIMES WHILE IN ROOM DOING ASSESSMENT. VITALS ARE WITHIN NORMAL LIMITS. ABLE TO VERBALIZE NEEDS. CALL LIGHT IS WITHIN REACH. WILL CONTINUE TO OBSERVE.
--- NOTE | 2020-02-12 22:09 | NUR ---
PT WAS MEDICATED WITH ZOFRAN AND TOLERATED WELL. MEDICATIONS GIVEN AND TOLERATED WELL. INSULIN HELD DUE TO BLOOD SUGAR 110 AND PT STATES THAT SHE DID NOT EAT VERY MUCH FOR DINNER. SNACK WAS GIVEN TO PT BUT SHE DID NOT EAT SNACK. WILL CONTINUE TO OBSERVE.
[2020-02-13] VITALS (11 sets, daily range): BP systolic 88–121; BP diastolic 42–65
--- NOTE | 2020-02-13 00:48 | NUR ---
PT IN BED WTH EYES OPEN AND COMPLAINED OF NOT BEING ABLE TO WARM UP AND SHIVERING. BLOOD SUGAR CHECKED AND 83 AND PT STATES THIS IS NORMAL FOR HER WHEN HER BLOOD SUGAR IS BELOW 100. JUICE AND VERONICA CRACKERS GIVEN. PT IS CONTINENT OF B/B AND USES BEDSIDE COMMODE WITH STANDBY ASSIST. VITALS STABLE. WILL CONTINUE TO OBSERVE.
[2020-02-13 06:05] LABS: HEMATOCRIT 32.9 % (37.0-47.0); HEMOGLOBIN 10.6 g/dl (12.0-16.0); IMMATURE GRANULOCYTES 0.9 % (0.0-5.0); MEAN CELL VOLUME 88.4 fL CALC (80.0-100.0); MEAN CORPUSCULAR HGB 28.5 pG CALC (26.0-32.0); MEAN CORPUSCULAR HGB CONC 32.2 g/dL CAL (32.0-36.0); NEUT# 4.21 thou/uL (2.00-7.15); RED BLOOD COUNT 3.72 mill/uL (4.20-5.60)
[2020-02-13 06:25] LABS: ALBUMIN 3.8 g/dL (3.2-5.0); ALKALINE PHOSPHATASE 54 u/l (38-126); ANION GAP 10 (6-22 (CALC)); BUN 22 mg/dL (8-23); BUN/CREATININE RATIO 32 (12-20 (CALC)); C-REACTIVE PROTEIN 4.7 mg/dL (0-0.9); CARBON DIOXIDE 25 mmol/l (22-30); CHLORIDE 100 mmol/l (95-108); CREATININE 0.7 mg/dL (0.5-1.0); GFR > 60 ML/MIN (>=60 (CALC)); GFR FOR AFR.AMER. > 60 ML/MIN (>=60 (CALC)); POTASSIUM 4.1 mmol/l (3.5-5.1); SGOT/AST 26 u/l (9-36); SODIUM 132 mmol/l (137-146)
[2020-02-13 06:47] LABS: BILIRUBIN, TOTAL 0.5 mg/dL (0.0-1.4)
--- NOTE | 2020-02-13 07:04 | NUR ---
pt in bed with eyes closed and able to make needs known. skin warm to touch. pt complains of nausea and was medicated during the night and helpful. tempt 99.6. pt has multiple blankets on and requesting room warmer during the night. tempt in room adjusted and some blankets removed. up to BSC with standby assistance. call light light within reach and bed in lowest position. will continue to observe.
--- NOTE | 2020-02-13 07:52 | NUR ---
PT SITTING IN BED. A&O X3. NO DISTRESS NOTED. O2 VIA NC @2L IN PLACE. PT DENIES ANY SOB. PT C/O OF DIZZINESS. REAL ESTATE PARALEGAL COUGH NOTED. PT REPORTS TO BE FEELING A LITTLE BETTER COMPARED TO YESTERDAY. NO OTHER NEEDS AT THIS TIME. ASSESSMENT COMPLETED. DISCUSSED POC. CALL LIGHT IN REACH. CONTINUE TO MONITOR.
--- NOTE | 2020-02-13 13:00 | NUR ---
PT SITTING IN BED. NO DISTRESS OR NEEDS AT THIS TIME. CALL LIGHT IN REACH. CONTINUE TO MONITOR.
--- NOTE | 2020-02-13 15:48 | NUR ---
PTS BP 88/44 HR 72 . PT ASYMPTOMATIC BESIDES C/O OF DIZZINESS THAT HAS BEEN OCCURRING SINCE THE AM. DR CAGE NOTIFIED. AWAITING ORDERS.
--- NOTE | 2020-02-13 15:50 | NUR ---
ORDERS FOR 500 ML NS BOLUS. ORDERS WRITTEN AND SENT TO PHARMACY.
--- NOTE | 2020-02-13 17:13 | NUR ---
BP RE-EVALUATED 90/45 HR 68
--- NOTE | 2020-02-13 17:34 | NUR ---
PT SITTING IN BED. NO DISTRESS OR NEEDS AT THIS TIME. CALL LIGHT IN REACH. CONTINUE TO MONITOR.
--- NOTE | 2020-02-13 18:42 | NUR ---
BP 92/46 HR 66. NO DISTRESS NOTED.
--- NOTE | 2020-02-13 19:15 | NUR ---
PATIENT IS ALERT AND ORIENTED X4. SATS 96% ON 2 L/MIN NC, NO SOB NOTED. C/O PAIN ON MID CHEST, EXPLAINS IT HURTS WHEN SHE BREATHES IN/OUT AND COUGHS, PT EXPLAINS IT HAS BEEN HURTING SINCE LAST NIGHT. RAC 20 G IV INTACT, SALINE LOCKED. PRODUCTIVE COUGH NOTED. POC DISCUSSED FOR TONIGHT, PATIENT UNDERSTANDS AND AGREES. USES BSC AND AGREES TO USE CALL LIGHT WHEN NEEDS TO USE IT. SELF REPSOTIONS. BP 90'S SYSTOLIC. CALL LIGHT WITHIN REACH.
--- NOTE | 2020-02-13 21:45 | NUR ---
PATIENT PROVIDED WITH A JUICE AND SNACK PER REQUEST. PROVIDED A BLANKET AND TYLENOL PER REQUEST FOR C/O KNEE PAIN. PT REPOSITIONS SELF. NEW PULSE OX ON FINGER PROVIDED. CALL LIGHT WITHIN REACH.
[2020-02-14] VITALS (14 sets, daily range): BP systolic 87–114; BP diastolic 42–55
--- NOTE | 2020-02-14 00:28 | NUR ---
PT'S BP 90'S SYSTOLIC. NO ACUTE DISTRESS SHOWN, NO COMPLAINTS OR NEEDS AT THIS TIME. AFEBRILE. CALL LIGHT WITHIN REACH.
--- NOTE | 2020-02-14 05:18 | NUR ---
PATIENT SHOWS NO ACUTE DISTRESS. NEW ICED WATER PROVIDED. BP CUFF REPOSOTIONED. NO COMPLAINTS, NO SOB NOTED. CALL LIGHT WITHIN REACH.
--- NOTE | 2020-02-14 08:21 | NUR ---
PT SITTING IN BED. A&O X3. NO DISTRESS NOTED. PT C/O OF GENERALIZED ACHING PAIN. O2 VIA NC @ 4L IN PLACE. BP MEDICATIONS HELD DUE TO LOW BP. NO OTHER NEEDS AT THIS TIME. ASSESSMENT COMPLETED. DISCUSSED POC. ISOLATION PRECUATIONS IN PLACE. CALL LIGHT IN REACH. CONTINUE TO MONITOR.
--- NOTE | 2020-02-14 11:32 | NUR ---
O2 % FLUCTUATING BETWEEN 89-90 ON 4L VIA NC. RT AT BEDSIDE. HIGH FLOW O2 @ 6L VIA NC IN PLACE. CONTINUE TO MONITOR.
--- NOTE | 2020-02-14 16:17 | NUR ---
O2 % 87-88. O2 TITRATED TO 8L HIGH FLOW, PT PLACED IN PRONE POSITION. EXPLAINED TO PT REASONING BEHIND INTERVENTIONS, PT VERBALIZED UNDERSTANDING. PT TOLERATED WELL. CALL LIGHT IN REACH. CONTINUE TO MONITOR.
--- NOTE | 2020-02-14 17:21 | NUR ---
PT REFUSED TO STAY IN PRONE POSITION DUE TO "BACK PAIN" EXPLAINED TO THE PT THE IMPORTANCE OF REMAINING IN PRONE POSITION DUE TO HER LOW O2. PT REFUSED, O2 TITRATED UP TO 10L.
--- NOTE | 2020-02-14 18:14 | NUR ---
O2 TITRATED TO 8L ON HIGH FLOW. PT SUSTAINING 92%-94%
--- NOTE | 2020-02-14 20:00 | NUR ---
RESTING IN BED. RESP SAHLLOW, NON-LABORED AT REST. ASSISTED PATIENT UP TO BSC AND SATS DROP TO 87-88% PATIENT IS ON 02 AT 8 L HF NC. BREATH SOUNDS DIMINISHED THROUGHOUT LUNG HARRIS. SALINE LOCK INTACT IN LAC, SITE BENIGN. SHIFT ASSESSMENT COMPLETED. DISCUSSED WITH PATIENT PLAN OF CARE AND PURPOSE OF PRONING AND IMPORTANCE IN KEEPING O2 SATS UP. PATIENT VEBRALIZES UNDERSTANDING OF TEACHING AND STATES SHE WILL TRY TO PRONE MUCH POSSIBLE. PATIENT VOIDED AND HAD A BM WHILE UP ON BSC. O2 SATS INCREASED TO 90-92% ONCE PATIENT RETURNED TO BED. DENIES NEEDS AT THIS TIME. CALL TELLEZ IN REACH.
--- NOTE | 2020-02-14 21:45 | NUR ---
RESTING WITHOUT COMPLAINTS. O2 SAT 90% ON 8 L HF NC, INCREASED TO 10 L HF NC. SR ON MASONRY INSTRUCTOR.
[2020-02-15] VITALS (16 sets, daily range): BP systolic 91–116; BP diastolic 47–56
--- NOTE | 2020-02-15 00:45 | NUR ---
PAITENT O2 SAT HOVERNG AT 89-90% ON 10 L HF NC. PATIENT ASLEEP IN SUPINE POSITON, AWAKENS TO NAME AND TURNED PRONE. O2 SAT PICKED UP TO 94-95% REMINDED PATIENT OF NEED TO PRONE MUCH POSSIBLE.
--- NOTE | 2020-02-15 01:21 | NUR ---
PATIENT CRYING OUT THAT HER BACK AND KNEES HURT TOO MUCH TO CONTINUE LYING PRONE. ASSISTED PATIENT TO TURN OVER.
--- NOTE | 2020-02-15 04:30 | NUR ---
BLOOD DRAWN FOR AM LABS. PATIENT RESTING SUPINE, O2 SATS 91-92% PATIENT HAS HAD FREQ EXPLANATIONS ABOUT LYING IN PRONE POSITION. SHE STATES D/T BACK PROBLEMS SHE IS UNABLE. RR 20'S. SR ON MONITOR. SALINE LOCK IN LAC FLUSHED AND PATENT.
[2020-02-15 05:18] LABS: HEMATOCRIT 33.1 % (37.0-47.0); HEMOGLOBIN 10.6 g/dl (12.0-16.0); IMMATURE GRANULOCYTES 0.4 % (0.0-5.0); MEAN CELL VOLUME 86.9 fL CALC (80.0-100.0); MEAN CORPUSCULAR HGB 27.8 pG CALC (26.0-32.0); NEUT# 4.39 thou/uL (2.00-7.15); RED BLOOD COUNT 3.81 mill/uL (4.20-5.60); RED CELL DISTRI WIDTH 14.2 % (11.5-15.5)
[2020-02-15 05:45] LABS: ALKALINE PHOSPHATASE 53 u/l (38-126); ANION GAP 9 (6-22 (CALC)); BILIRUBIN, TOTAL 0.3 mg/dL (0.0-1.4); BUN 20 mg/dL (8-23); BUN/CREATININE RATIO 30 (12-20 (CALC)); CARBON DIOXIDE 28 mmol/l (22-30); CHLORIDE 99 mmol/l (95-108); CREATININE 0.7 mg/dL (0.5-1.0); GFR > 60 ML/MIN (>=60 (CALC)); GFR FOR AFR.AMER. > 60 ML/MIN (>=60 (CALC)); POTASSIUM 3.9 mmol/l (3.5-5.1); SGOT/AST 27 u/l (9-36); SODIUM 133 mmol/l (137-146); TOTAL PROTEIN 5.5 g/dL (6.3-8.2)
[2020-02-15 05:58] LABS: C-REACTIVE PROTEIN 20.2 mg/dL (0-0.9)
--- NOTE | 2020-02-15 06:12 | NUR ---
NO CHANGES TO REPORT. REMAINS ON O2 12 L HF NC. SR ON MONITOR.
--- NOTE | 2020-02-15 07:50 | NUR ---
pt awake in bed; assessment completed at this time; pt alert and oriented; admits to arthritis pain to right shoulder; will medicate; no n/v noted; resp even and unlabored; lungs clear/ rhonchi noted to bilat bases; skin color wnl; o2 per nc at 12L hi kellie; o2 sat 88%; deep breathing encouraged; prone positioning encouraged and strongly recommended; pt declined prone position d/t arthritis; terminal makeup operator cough noted; hr reg; strong pulses; no edema noted; sr on monitor; abd soft with bs present; no bm noted per grant writer; no urine to inspect at this time; purewick to be placed d/t dyspnea with minimal exertion; #22 flushed and patent to lac; no redness or edema noted at site; plan of care/ am meds explained; grant writer has spoken with pt in regards to importance of proning if possible; supplement o2 demand explained as well as intubation; call light within reach; will continue to monitor
--- NOTE | 2020-02-15 07:59 | NUR ---
awake in bed; breakfast provided; o2 per nc; sr on monitor; will continue to monitor
--- NOTE | 2020-02-15 08:55 | NUR ---
awake in bed; o2 sat 84% on 12L NC hi kellie; o2 titrated to 14L; RT notified; am meds explained and given; purewick placed; prone positioning explained; will continue to monitor closely
--- NOTE | 2020-02-15 10:01 | NUR ---
resting with eyes closed; purewick intact; no resp distress noted; sr on monitor; o2 per nc at 15L; o2 sat 89%-91%; call light within reach; will continue to monitor
--- NOTE | 2020-02-15 12:12 | NUR ---
awake in bed; offers no complaints; admits to pain relief; sr on monitor; o2 per nc at 15L hi kellie; purewick intact; call light within reach; will continue to monitor
--- NOTE | 2020-02-15 14:03 | NUR ---
resting in bed with eyes closed; o2 per nc; purewick catheter in place; sb on monitor; iv intact; call light within reach; will continue to monitor
--- NOTE | 2020-02-15 16:10 | NUR ---
awake in bed; offers no complaints; no apparent distress noted; sr on monitor; o2 per nc; purewick intact; call light within reach; will continue to monitor
--- NOTE | 2020-02-15 18:10 | NUR ---
awake in bed; offers no complaints; iv intact and patent; abt infusing without complication; sr on monitor; o2 per nc at 15L; call light within reach
--- NOTE | 2020-02-15 19:15 | NUR ---
RESTING IN BED IN SUPINE POSITION. RESP SHALLOW. O2 SAT 92% ON O2 AT 15 L HF NC. REINSTRUCTED AND ENCOURAGED PRONING. PATIENT STATES SHE CANNOT DO IT D/T BACK ISSUES. OFFERED TO MEDICATE FOR PAIN PRIOR TO PRONING. PATIENT REFUSES, STATES MAYBE LATER. DISCUSSED WITH PATIENT IF RESP STATUS DETERIORATES CHANGING TO NON-REBREATHER, BIPAP AND EVEN POSSIBLY INTUBATION AND VENTILATOR. EMOTIONAL AND SUPPORT AND REASSURANCE PROVIDED. RESP SHALLOW. CANO. BREATH SOUNDS VERY DIMINISHED THROUGHOUT LUNG HARRIS. SALINE LOCK IN LAC, SITE BENIGN. MERCHANDISER SHOWS SB, HR 50'S. DISCUSSED PLAN OF CARE. NO NEEDS IDENTIFIED AT THIS TIME. CALL TELLEZ IN REACH.
--- NOTE | 2020-02-15 21:15 | NUR ---
HS ACCU CHECK 131, NO COVERAGE REQUIRED PER SS PROTOCOL. SCHEDULED DOSE OF LEVEMIR GIVEN ORDERES. PROVIDED WITH HS SNACK.
--- NOTE | 2020-02-15 22:10 | NUR ---
JEN SHERIDAN'Gerson AND #14 OCCITAN ROACH CATHETER INSERTED WITHOUT DIFFICULTY, DRAINING CLEAR YELLOW URINE. LORTAB GIVEN FOR C/O BACK PAIN. ASSISTED PATIENT WITH TURNING PRONE. O2 SAT UP TO 95% WHILE PRONE.
--- NOTE | 2020-02-15 23:15 | NUR ---
PATIENT TOLERATED PRONE POSTION FOR PAST 1 HOUR.MAINTAINED O2 SATS 93-95% WHILE PRONE. PATIENT TURNED SUPINE AT THIS TIME.
[2020-02-16] VITALS (18 sets, daily range): BP systolic 86–151; BP diastolic 43–90
--- NOTE | 2020-02-16 00:15 | NUR ---
O2 SATS DROPPED TO 86-88% PATIENT AWAKENS TO NAME. ENCOURAGED DEEP BREATHING EXERCISES. CALL RT TO EVALUAT PATIENT. PATIENT PLACED ON NRB MASK AT 15 L. WILL CONTINUE TO MOITOR CLOSELY. SUPPORT AND REASSURANCE PROVIDED TO PATIENT.
--- NOTE | 2020-02-16 01:00 | NUR ---
RESTING WITH EYES CLOSED. O2 SAT 90-91% SB ON MONITOR.
--- NOTE | 2020-02-16 02:00 | NUR ---
NO CHANGES TO REPORT. SB ON MONITOR. O2 SAT 89-92% RESP SHALLOW, NON-LABORED AT REST.
--- NOTE | 2020-02-16 02:00 | NUR ---
NO CHANGES TO REPORT. VSS. SB ON MONITOR.
--- NOTE | 2020-02-16 04:00 | NUR ---
RESTING WITH EYES CLOSED. CONTINUES TO RUN 89-92% O2 SAT ON 15 L NRB MASK.
--- NOTE | 2020-02-16 06:00 | NUR ---
AWAKE ON ROUNDS. NO C/O VOICED. VSS. SB ON MONITOR. SALINE LOCK MAINTAINED IN LAC.
--- NOTE | 2020-02-16 07:20 | NUR ---
pt awake in bed; no apparent distress noted; pt offers no complaints; assessment completed at this time; pt alert and oriented; denies pain at current; no n/v noted; resp even and unlabored; lungs clear upper anterior; rales bilat bases; skin color wnl; o2 per NRB at15L; sob noted with any/minimal exertion; hr reg; strong pulses; no edema noted; sb on monitor; abd soft with bs present; no bm noted per typewriter aligner; hewitt to gravity draining well; #22 intact to lac; no redness or edema noted at site; plan of care/ am meds explained; prone positioning encouraged; pt denies ability to prone/ tolerate position; call light within reach; will continue to monitor
--- NOTE | 2020-02-16 08:00 | NUR ---
awake in bed; NRB intact with 15L o2; sr on monitor; iv intact; hewitt to gravity; call light within reach; will continue to monitor
--- NOTE | 2020-02-16 10:02 | NUR ---
Dr Lange present at bedside to assess pt and discuss plan of care; importance of proning explained in great detail; o2 demand/ low bp explained per MD; intubation/vent explained in great detail; pt agreeable to attempt prone positioning; will continue to monitor
--- NOTE | 2020-02-16 11:45 | NUR ---
pt noted resting in prone position; no apparent distress noted; o2 sat 91%; continues with 15L NRB; sr on monitor; hewitt to gravity; call light within reach; will continue to monitor
--- NOTE | 2020-02-16 12:10 | NUR ---
awake in bed; supine position; attempting lunch; will continue to monitor
--- NOTE | 2020-02-16 13:00 | NUR ---
low 02; pt instructed to lay prone position; o2 sat 93% in prone position
--- NOTE | 2020-02-16 13:59 | NUR ---
resting in bed in supine position; o2 per NRB; hewitt to gravity; iv intact; pt instructed to lay prone; refuses at this time; will continue to monitor
--- NOTE | 2020-02-16 14:23 | NUR ---
awake in bed; pt very emotional/crying; pt states "I'm in so much pain, I've never been in this much pain in my life"; lortab has been explained and administered; headline writer request for pt to lay prone; pt states "I'm going to wait until my pain meds kick in";l headline writer instructed pt her o2 level was very low; continue to lay supine; RT at bedside to instruct pt to lay probe; pt cont to lay supine; will continue to monitor
--- NOTE | 2020-02-16 14:36 | NUR ---
pt prone; o2 sat 93%; will continue to monitor
--- NOTE | 2020-02-16 15:10 | NUR ---
RT at bedside for abg; pt prone. o2 sat 97%
--- NOTE | 2020-02-16 16:20 | NUR ---
resting in bed; no apparent distress noted; o2 per NRB; o2 sat 96%; remains in prone position; hewitt to gravity; sr on monitor; call light within reach; will continue to monitor
--- NOTE | 2020-02-16 17:50 | NUR ---
daughter Fiorella called this job specification writer; passcode verified; update provided
--- NOTE | 2020-02-16 18:05 | NUR ---
resting in bed in prone position; no apparent distress noted; o2 sat 96%; 15L NRB intact; sr on monitor; hewitt to gravity; call light within reach
--- NOTE | 2020-02-16 20:00 | NUR ---
RESTING IN BED IN PRONE POSITION, O2 SAT 93% ON 15 L NRB MASK. RESP SHALLOW. BREATH SOUNDS DIMINISHED THROUGHOUT LUNG HARRIS. SALINE LOCK IN PLACE IN LAC AND RW, BOTH SITES BENIGN. SHIFT ASSESSMENT COMPLETED. PARTS AND SERVICE MANAGER SHOWS SR. DISCUSSED PLAN OF CARE REINFORCING JIMMY TO REST IN PRONE POSITION MUCH POSSIBLE. PATIENT VERBALIZES UNDERSTANDING. NO NEEDS IDENTIFIED AT THIS TIME. CALL TELLEZ IN REACH.
--- NOTE | 2020-02-16 21:00 | NUR ---
HS ACCU CHECK 92, NO SS COVERAGE REQUIRED. GIVEN SCHEDULE DOSE OF LEVEMIR AND PROVIDED WITH HS SNACK OF APPLE JUICE AND NUTRA-GRAIN BAR.
--- NOTE | 2020-02-16 22:15 | NUR ---
PATIENT SUPINE BRIEFLY, UNABLE TO MAINTAIN SATS AND RETURNED TO SUPINE POSITION. MEDICATED WITH LORTAB ORDERD FOR C/O BACK PAIN.
[2020-02-17] VITALS (42 sets, daily range): BP systolic 98–155; BP diastolic 51–73
--- NOTE | 2020-02-17 | NUR ---
RESTING WITH EYES CLOSED. O2 SAT 92% LYING PRONE AT THIS TIME. SR ON MONITOR.
--- NOTE | 2020-02-17 02:00 | NUR ---
NO CHANGES TO REPORT. LYING IN PRONE POSITION. SR ON MONITOR.
--- NOTE | 2020-02-17 04:00 | NUR ---
PATIENT SUPINE BRIEFLY. MEDICATED WITH LORTAB FOR C/O BACK PAIN. REPOSITIONS SELF TO PRONE POSITION.
--- NOTE | 2020-02-17 06:00 | NUR ---
PATIENT RESTED IN PRONE POSITION THE MAJORITY OF THE NIGHT. O2 SATS HAVE BEEN MAINTAINED. REMAINS ON 15 L NRB MASK. SR ON CARIDAC MONITOR.
[2020-02-17 06:22] LABS: HEMATOCRIT 34.8 % (37.0-47.0); HEMOGLOBIN 11.2 g/dl (12.0-16.0); IMMATURE GRANULOCYTES 0.6 % (0.0-5.0); MEAN CELL VOLUME 86.8 fL CALC (80.0-100.0); MEAN CORPUSCULAR HGB 27.9 pG CALC (26.0-32.0); MEAN CORPUSCULAR HGB CONC 32.2 g/dL CAL (32.0-36.0); NEUT# 3.71 thou/uL (2.00-7.15); RED BLOOD COUNT 4.01 mill/uL (4.20-5.60); RED CELL DISTRI WIDTH 14.4 % (11.5-15.5)
[2020-02-17 06:29] LABS: ALBUMIN 2.8 g/dL (3.2-5.0); ALKALINE PHOSPHATASE 61 u/l (38-126); ANION GAP 7 (6-22 (CALC)); BILIRUBIN, TOTAL 0.3 mg/dL (0.0-1.4); BUN 20 mg/dL (8-23); BUN/CREATININE RATIO 41 (12-20 (CALC)); C-REACTIVE PROTEIN > 9.0 mg/dL (0-0.9); CARBON DIOXIDE 29 mmol/l (22-30); CHLORIDE 101 mmol/l (95-108); CREATININE 0.5 mg/dL (0.5-1.0); GFR > 60 ML/MIN (>=60 (CALC)); GFR FOR AFR.AMER. > 60 ML/MIN (>=60 (CALC)); POTASSIUM 4.3 mmol/l (3.5-5.1); SGOT/AST 32 u/l (9-36); SODIUM 134 mmol/l (137-146); TOTAL PROTEIN 5.4 g/dL (6.3-8.2)
--- NOTE | 2020-02-17 06:45 | NUR ---
REPORT RECEIVED FROM GAYATHRI REARDON. CARE ASSUMED.
--- NOTE | 2020-02-17 07:00 | NUR ---
PT RESTING IN BED PRONE. PT IS ALERT AND ORIENTED X3. SHIFT ASSESSMENT COMPLETED AT THIS TIME. IV PATENT X2. CALL LIGHT IN REACH. PT REQUESTING TO TURN OVER. EXPLAINED THAT IT IS BETTER FOR OXYGEN SATURATION FOR PT TO REMAIN PRONE. PT TURNED TO SIDE DUE TO BACK PAIN AT THIS TIME. WILL CONTINUE TO CLOSELY MONITOR.
--- NOTE | 2020-02-17 08:00 | NUR ---
DR CERVANTES AT BEDSIDE AT THIS TIME.
--- NOTE | 2020-02-17 09:00 | NUR ---
PT PROVIDED AM MEDICATIONS. PT REMOVED NRB TO TAKE AM MEDICATIONS. O2 SAT IMMEADIATELY DROPPED TO 68%. PT ENCOURAGED TO PLACE NRB BACK ON AND LAY PRONE. PT VERBALIZED UNDERSTANDING.
--- NOTE | 2020-02-17 10:30 | NUR ---
pt automation analyst light requesting to get up to restroom for bm. encourage pt to use bed [place]. pt refused. pt demanded to get up to bsc. assisted pt up to bsc. pt o2 sats dropped to 70s. alerted other nurse emily to notify
--- NOTE | 2020-02-17 10:47 | NUR ---
UPDATED DR CERVANTES ON PTS STATUS, O2 IN 70'S, PT UNABLE TO PRONE. MD AGREED ON INTUBATION. OR CALLED.
--- NOTE | 2020-02-17 11:00 | NUR ---
1104-versed 2mg given iv push 1110- time out performed 1114- lidocaine 100mg iv pushed by r rosanne operator and truck driver 1117- propofol 100mg iv pushed by r rosanne operator and truck driver 1117- succinycholine 100mg iv pushed by r rosanne operator and truck driver 1123- pt intubated with 7.0 et tube @ 23 lip line 1125- pancoronium 10mg iv pushed by r rosanne operator and truck driver 1130- propofol 5mcg/kg started 1135- ng to r kun 1140- radiology at bedside to verify placement of all tubes
--- NOTE | 2020-02-17 12:10 | NUR ---
rt at bedside for repeat abg
--- NOTE | 2020-02-17 12:40 | NUR ---
dr klein at bedside for reassessment
--- NOTE | 2020-02-17 12:45 | NUR ---
maverick at [facility] transfer center notified of need to initiate transfer for higher level of care. face sheet and positive covid test faxed to [phone]
--- NOTE | 2020-02-17 12:50 | NUR ---
phoned family rosalia barros. she asked that we notify sister nando jiménez and get permission for transfer from her. nando called updated on plan of care. obtained consent to transfer with second nurse witness teresa haq lpn.
--- NOTE | 2020-02-17 14:00 | NUR ---
NG COILED IN PT MOUTH. NG REMOVED AT THIS TIME. WILL REPLACE WHEN RT REPLACES TUBE HILTON.
--- NOTE | 2020-02-17 14:45 | NUR ---
RT REPLACED ET TUBE HILTON. OG PLACED AT THIS TIME. VERIFIED WITH AUSCULTATION. POSITIVE FOR GASTRIC CONTENT WHEN PLACED TO LIS WELL. PT TOLERATED WELL. WILL CONTINUE TO MONITOR.
--- NOTE | 2020-02-17 16:01 | NUR ---
PT RESTING IN BED INTUBATED AND SEDATED AT THIS TIME. IV PATENT X2. WILL CONTINUE TO MONITOR.
--- NOTE | 2020-02-17 16:25 | NUR ---
TIMBO FROM [facility] TRANSF[facility] PHONED WITH ACCEPTING MD AND BED ASSIGNMENT. PHONED [facility] TO ARRANGE TRANSPORT. ETA 90 MINUTES.
--- NOTE | 2020-02-17 17:04 | NUR ---
DAUGHTER RAMESH PHONED FOR UPDATE. UPDATE PROVIDED.
--- NOTE | 2020-02-17 18:00 | NUR ---
PT RESTING IN BED INTUBATED AND SEDATED AT THIS TIME. VSS ON MONITOR. IV PATENT X2. WILL CONTINUE TO MONITOR CLOSELY.
--- NOTE | 2020-02-17 19:07 | NUR ---
[facility] transport here to nut picker patient, now collecting packet that is ready.
--- NOTE | 2020-02-17 19:35 | NUR ---
[facility] has just left with patient, tidal volume increased to 450 due to patient was sating 90%-92%, o2 sat now 96%-97%.
--- NOTE | 2020-02-17 19:49 | NUR ---
i have called james at [facility] to give sbar, phone number from here icu given in case she needs to call. i have also spoken to the daughter nando to let her know her mother has just left via [facility], location of room provided.
== END 2020-02-17 19:35 | disposition short-term general hospital (02) | DRG 208 ==
LOC: ED 16:15 → ED-I 18:10 → ED 18:44 → ICU 18:45
PROVIDERS: Student in an Organized Health Care Education/Training Program; ADMIT Internal Medicine; ATTEND Internal Medicine
PROC: 0BH17EZ Insertion of Endotracheal Airway into Trachea, Via Natural or Artificial Opening (ICD-10-PCS; principal; 2020-02-17)
PROC: 5A1935Z Respiratory Ventilation, Less than 24 Consecutive Hours (ICD-10-PCS; 2020-02-17)
DX: U07.1 COVID-19 (principal); J12.89 Other viral pneumonia; J96.01 Acute respiratory failure with hypoxia; I10 Essential (primary) hypertension; E11.9 Type 2 diabetes mellitus without complications; E78.5 Hyperlipidemia, unspecified; I25.10 Atherosclerotic heart disease of native coronary artery without angina pectoris; J43.9 Emphysema, unspecified; K21.9 Gastro-esophageal reflux disease without esophagitis; Z87.891 Personal history of nicotine dependence; Z79.4 Long term (current) use of insulin
CPT/HCPCS: J1650

== ENCOUNTER 2020-06-02 14:24 | Emergency (ER) | payer MEDICARE, MEDICAID ==
[~2020-06-02] VITALS: Ht 165.1 cm; Wt 65.0 kg
[~2020-06-02 14:24] MED LIST changes: +HYDROCHLOROTH12.5 M1 PO
[2020-06-02] MEDS ORDERED: LANTUS100 UNIT/M (16:45)
[2020-06-02] MEDS ORDERED: MIRTAZAPINE15 MG PO (16:47)
[2020-06-02] MEDS ORDERED: POTASSIUM CHLO10 MEQ PO (16:48)
[2020-06-02] MEDS ORDERED: SERTRALINE25 MG PO (16:49)
[2020-06-02 18:35] VITALS: BP 107/52
== END 2020-06-02 18:36 | disposition home or self-care (01) ==
LOC: ED 14:24
DX: T14.8XXA Other injury of unspecified body region, initial encounter (principal); E11.9 Type 2 diabetes mellitus without complications; I10 Essential (primary) hypertension; E78.5 Hyperlipidemia, unspecified; X58.XXXA Exposure to other specified factors, initial encounter; Z79.4 Long term (current) use of insulin; Z86.19 Personal history of other infectious and parasitic diseases; Z20.828 Contact with and (suspected) exposure to other viral communicable diseases

== ENCOUNTER 2022-12-22 16:00 | Emergency (ER) | payer MEDICARE, MEDICAID ==
[~2022-12-22] VITALS: Ht 165.1 cm; Wt 66.2 kg
[~2022-12-22 16:00] MED LIST changes: +LANTUS100 UNIT/M; +MIRTAZAPINE15 MG PO; +POTASSIUM CHLO10 MEQ PO; +SERTRALINE25 MG PO
[2022-12-22] MEDS ORDERED: LIDOCAINE HCL VIS2 % PO (17:42)
[2022-12-22 17:56] VITALS: BP 89/56
== END 2022-12-22 18:27 | disposition home or self-care (01) ==
LOC: ED 16:00
DX: K21.00 Gastro-esophageal reflux disease with esophagitis, without bleeding (principal); I10 Essential (primary) hypertension; E11.9 Type 2 diabetes mellitus without complications; E78.5 Hyperlipidemia, unspecified; Z79.4 Long term (current) use of insulin

== ENCOUNTER 2023-01-21 14:38 | Inpatient (IN) | payer MEDICARE, MEDICAID ==
[2023-01-21] VITALS (21 sets, daily range): BP systolic 73–107; BP diastolic 45–68
[~2023-01-21] VITALS: Ht 165.1 cm; Wt 64.5 kg
[~2023-01-21 14:38] MED LIST changes: +LIDOCAINE HCL VIS2 % PO
[2023-01-21 15:17] LABS: BASO% 0.2 % (0-3); EOS% 0.2 % (0-8); HEMOGLOBIN 14.1 g/dl (12.0-16.0); IMMATURE GRANULOCYTES 0.2 % (0.0-5.0); LYMPH% 18.2 % (15-41); MEAN CELL VOLUME 88.2 fL CALC (80.0-100.0); MEAN CORPUSCULAR HGB 28.3 pG CALC (26.0-32.0); NEUT% 73.2 % (42-76); RED BLOOD COUNT 4.99 mill/uL (4.20-5.60); RED CELL DISTRI WIDTH 14.8 % (11.5-15.5)
[2023-01-21 15:25] LABS: BILIRUBIN, TOTAL 0.6 mg/dL (0.02-1.3); POTASSIUM 4.2 mmol/l (3.5-5.1); TOTAL PROTEIN 5.8 g/dL (6.3-8.2)
[2023-01-21 15:35] LABS: CREATININE 1.8 mg/dL (0.5-1.0)
[2023-01-21 17:04] LABS: URINE BILIRUBIN - DIPSTICK NEGATIVE (NEGATIVE); URINE BLOOD DIPSTICK TRACE-INTACT (NEGATIVE); URINE COLOR YELLOW; URINE GLUCOSE - DIPSTICK NEGATIVE (NEGATIVE); URINE KETONE NEGATIVE (NEGATIVE); URINE LEUK ESTERASE NEGATIVE (NEGATIVE); URINE NITRITE - DIPSTICK NEGATIVE (Negative); URINE PH 5.5 (4.5-8.0); URINE PROTEIN - DIPSTICK 100 mg/dL (NEG-TRACE); URINE SPECIFIC GRAVITY 1.025; URINE UROBILINOGEN - DIPSTICK 0.2 E.U./dL (0.2)
[2023-01-21 17:13] LABS: URINE RBC 0-2 RBC/hpf (0-5)
[2023-01-21 17:14] LABS: URINE BACTERIA MANY hpf; URINE COARSE GRANULAR CAST MANY lpf; URINE SQUAMOUS EPITHELIAL CELL FEW EPI/hpf (0-FEW)
[2023-01-21] MEDS ORDERED: LANSOPRAZOLE15 MG PO (18:39)
[2023-01-22] VITALS (7 sets, daily range): BP systolic 80–93; BP diastolic 47–51
[2023-01-22 06:30] LABS: HEMATOCRIT 41.6 % (37.0-47.0); HEMOGLOBIN 13.3 g/dl (12.0-16.0); MEAN CORPUSCULAR HGB 27.8 pG CALC (26.0-32.0); RED BLOOD COUNT 4.78 mill/uL (4.20-5.60); RED CELL DISTRI WIDTH 14.9 % (11.5-15.5)
[2023-01-22 06:50] LABS: ALBUMIN 2.5 g/dL (3.2-5.0); BILIRUBIN, TOTAL 0.6 mg/dL (0.02-1.3); CREATININE 1.7 mg/dL (0.5-1.0); POTASSIUM 4.7 mmol/l (3.5-5.1); TOTAL PROTEIN 4.7 g/dL (6.3-8.2)
[2023-01-22 06:51] LABS: MAGNESIUM 1.6 mg/dL (1.6-2.3)
[2023-01-23] VITALS (8 sets, daily range): BP systolic 77–91; BP diastolic 40–53
[2023-01-23 06:03] LABS: HEMATOCRIT 40.6 % (37.0-47.0); HEMOGLOBIN 12.9 g/dl (12.0-16.0); MEAN CELL VOLUME 88.5 fL CALC (80.0-100.0); MEAN CORPUSCULAR HGB 28.1 pG CALC (26.0-32.0); MEAN CORPUSCULAR HGB CONC 31.8 g/dL CAL (32.0-36.0); RED BLOOD COUNT 4.59 mill/uL (4.20-5.60); RED CELL DISTRI WIDTH 15.4 % (11.5-15.5)
[2023-01-23 06:14] LABS: ALBUMIN 2.4 g/dL (3.2-5.0); BILIRUBIN, TOTAL 0.7 mg/dL (0.02-1.3); CREATININE 1.5 mg/dL (0.5-1.0); MAGNESIUM 1.7 mg/dL (1.6-2.3); POTASSIUM 4.1 mmol/l (3.5-5.1); TOTAL PROTEIN 4.6 g/dL (6.3-8.2)
[2023-01-24] VITALS (63 sets, daily range): BP systolic 78–115; BP diastolic 49–69
[2023-01-24 05:45] LABS: HEMATOCRIT 39.3 % (37.0-47.0); HEMOGLOBIN 12.5 g/dl (12.0-16.0); MEAN CELL VOLUME 87.3 fL CALC (80.0-100.0); MEAN CORPUSCULAR HGB 27.8 pG CALC (26.0-32.0); MEAN CORPUSCULAR HGB CONC 31.8 g/dL CAL (32.0-36.0); RED BLOOD COUNT 4.5 mill/uL (4.20-5.60); RED CELL DISTRI WIDTH 15.4 % (11.5-15.5)
[2023-01-24 07:35] LABS: ALBUMIN 2.1 g/dL (3.2-5.0); BILIRUBIN, TOTAL 0.5 mg/dL (0.02-1.3); CREATININE 1.3 mg/dL (0.5-1.0); MAGNESIUM 1.5 mg/dL (1.6-2.3); POTASSIUM 3.9 mmol/l (3.5-5.1); TOTAL PROTEIN 4.3 g/dL (6.3-8.2)
[2023-01-25] VITALS (95 sets, daily range): BP systolic 86–122; BP diastolic 39–69
[2023-01-25 05:59] LABS: HEMATOCRIT 39.7 % (37.0-47.0); HEMOGLOBIN 12.8 g/dl (12.0-16.0); MEAN CELL VOLUME 87.4 fL CALC (80.0-100.0); MEAN CORPUSCULAR HGB 28.2 pG CALC (26.0-32.0); MEAN CORPUSCULAR HGB CONC 32.2 g/dL CAL (32.0-36.0); RED BLOOD COUNT 4.54 mill/uL (4.20-5.60); RED CELL DISTRI WIDTH 15.6 % (11.5-15.5)
[2023-01-25 06:14] LABS: ALBUMIN 2.3 g/dL (3.2-5.0); BILIRUBIN, TOTAL 0.4 mg/dL (0.02-1.3); CREATININE 1.3 mg/dL (0.5-1.0); MAGNESIUM 1.6 mg/dL (1.6-2.3); POTASSIUM 3.8 mmol/l (3.5-5.1); TOTAL PROTEIN 4.8 g/dL (6.3-8.2)
== END 2023-01-25 18:05 | disposition short-term general hospital (02) | DRG 73 ==
LOC: ED 14:38 → MS2 18:45 → ICU 01-23 05:13
PROVIDERS: Family Medicine; ADMIT Internal Medicine; ATTEND Internal Medicine
PROC: 02HV33Z Insertion of Infusion Device into Superior Vena Cava, Percutaneous Approach (ICD-10-PCS; principal; 2023-01-23)
PROC: 0DB78ZX Excision of Stomach, Pylorus, Via Natural or Artificial Opening Endoscopic, Diagnostic (ICD-10-PCS; 2023-01-24)
PROC: 0DB68ZX Excision of Stomach, Via Natural or Artificial Opening Endoscopic, Diagnostic (ICD-10-PCS; 2023-01-24)
PROC: 0DC68ZZ Extirpation of Matter from Stomach, Via Natural or Artificial Opening Endoscopic (ICD-10-PCS; 2023-01-24)
DX: E11.43 Type 2 diabetes mellitus with diabetic autonomic (poly)neuropathy (principal); E43 Unspecified severe protein-calorie malnutrition; J18.9 Pneumonia, unspecified organism; N17.9 Acute kidney failure, unspecified; K56.7 Ileus, unspecified; K31.84 Gastroparesis; K31.7 Polyp of stomach and duodenum; K21.00 Gastro-esophageal reflux disease with esophagitis, without bleeding; R62.7 Adult failure to thrive; I95.9 Hypotension, unspecified; I10 Essential (primary) hypertension; E11.649 Type 2 diabetes mellitus with hypoglycemia without coma; J43.9 Emphysema, unspecified; E78.5 Hyperlipidemia, unspecified; Z79.4 Long term (current) use of insulin; Z86.16 Personal history of COVID-19; Z87.891 Personal history of nicotine dependence; Z20.822 Contact with and (suspected) exposure to COVID-19
CPT/HCPCS: J1650; Q9967; S0164